=== PATIENT | male | born 1955 | race Caucasian/White ===

== ENCOUNTER 2016-08-12 09:13 | Emergency (ER) | payer OTHER, BC ==
[~2016-08-12] VITALS: Ht 177.8 cm; Wt 124.0 kg
[~2016-08-12 09:13] MED LIST: ACETAMINOPHN-T1 EACH PO; ACTOS30 MG PO; ADULT LOW DOSE81 M1 PO; ALLOPURINOL300 MG; ALLOPURINOL300 MG PO; ANAPROX DS550 M1 PO; B COMPLETE1 EACH PO; BENICAR HCT 401 EAC1; BENICAR HCT 401 EAC1 PO; CELEBREX200 MG PO; COLCRYS 0.6 MG; COLCRYS0.6 MG PO; FERROUS SULFAT325 MG PO; FISH OIL CONC1 EACH PO; FLEXERIL10 MG PO; LIDODERM 5% P1 PATCH TD; METFORMIN HCL1000 MG PO; METFORMIN HCL500 MG; NASONEX17 GM BOTH NARES; NEURONTIN; OXAYDO5 MG PO; OXAYDO7.5 MG PO; PERCOCET 5/31 TABLET PO; TRAMADOL HCL50 MG PO; VITAMIN B12-FO1 EACH PO
[2016-08-12] MEDS ORDERED: PROAIR HFA8.5 GM IH (11:15)
[2016-08-12] MEDS ORDERED: SPIRIVA RESPIMAT4 G1 AEROSOL (11:16)
[2016-08-12] MEDS ORDERED: ZYRTEC10 M2 PO (11:17)
[2016-08-12] MEDS ORDERED: ULTRACET1 TABLET PO (13:05)
[2016-08-12] MEDS ORDERED: VALIUM5 MG PO (13:05)
[2016-08-12] MEDS ORDERED: MOTRIN800 MG PO (13:05)
[2016-08-12] MEDS ORDERED: PREDNISONE20 MG PO (13:18)
[2016-08-12] MEDS ORDERED: NORCO 7.5/321 TABLET PO (13:18)
[2016-08-12 13:25] VITALS: BP 129/81
== END 2016-08-12 14:04 | disposition home or self-care (01) ==
LOC: EME 09:13
DX: S09.90XA Unspecified injury of head, initial encounter (principal); S16.1XXA Strain of muscle, fascia and tendon at neck level, initial encounter; S46.811A Strain of other muscles, fascia and tendons at shoulder and upper arm level, right arm, initial encounter; S20.211A Contusion of right front wall of thorax, initial encounter; S29.011A Strain of muscle and tendon of front wall of thorax, initial encounter; W00.0XXA Fall on same level due to ice and snow, initial encounter; R05 Cough; G89.29 Other chronic pain; Z79.82 Long term (current) use of aspirin
CPT/HCPCS: 71101; 99281; 99284

== ENCOUNTER → 2017-05-04 | Outpatient (CLI) | payer BC ==
[~2017-05-04] MED LIST changes: +MOTRIN800 MG PO; +NORCO 7.5/321 TABLET PO; +PREDNISONE20 MG PO; +PROAIR HFA8.5 GM IH; +SPIRIVA RESPIMAT4 G1 AEROSOL; +ULTRACET1 TABLET PO; +VALIUM5 MG PO; +ZYRTEC10 M2 PO
== END | disposition home or self-care (01) ==
LOC: NUC 10:22
DX: M47.896 Other spondylosis, lumbar region (principal); Z96.611 Presence of right artificial shoulder joint; Z87.81 Personal history of (healed) traumatic fracture; R93.7 Abnormal findings on diagnostic imaging of other parts of musculoskeletal system
CPT/HCPCS: 78306; A9503

== ENCOUNTER → 2017-05-07 | Outpatient (CLI) | payer BC | END | disposition home or self-care (01) | LOC: RAD 08:26 | DX: K57.90 Diverticulosis of intestine, part unspecified, without perforation or abscess without bleeding (principal); D35.02 Benign neoplasm of left adrenal gland; M16.0 Bilateral primary osteoarthritis of hip; M47.9 Spondylosis, unspecified | CPT/HCPCS: 74177 ==

== ENCOUNTER 2018-01-02 14:07 | Inpatient (IN) | payer BC ==
[~2018-01-02] VITALS: Ht 180.3 cm; Wt 131.0 kg
[~2018-01-02 14:07] MED LIST changes: -SPIRIVA RESPIMAT4 G1 AEROSOL; +SPIRIVA RESPIMAT4 G1 IH
[2018-01-02 14:47] LABS: HEMATOCRIT 42.8 % (38.0-50.0); HEMOGLOBIN 14.1 G/DL (12.5-16.6); MCH 30.2 PG (29.0-34.0); MCHC 32.9 G/DL (30.0-36.0); MCV 91.6 FL (86-99); PLATELET COUNT 336 K/uL (156-360); RBC DIS.WIDTH-CV 14.5 % (11.8-14.6); RBC DIS.WIDTH-SD 48.9 % (39-53); RED BLOOD COUNT 4.67 M/uL (4.00-5.50); WHITE BLOOD COUNT 14.6 K/uL (4.1-10.2)
[2018-01-02 14:58] LABS: CHLORIDE 98 mEq/L (99-109); POTASSIUM 4.1 mEq/L (3.7-5.4); SODIUM 136 mEq/L (136-147)
[2018-01-02 14:59] LABS: GLUCOSE 194 mg/dL (70-99)
[2018-01-02 15:03] LABS: CREATININE 1.9 mg/dL (0.6-1.3); GFR ESTIMATE (CALCULATED) 38 mL/min/ (58.99-99999)
[2018-01-02 15:04] LABS: UREA NITROGEN (BUN) 29 mg/dL (9-23)
[2018-01-02 15:09] LABS: TROP-I INTERPRETATION NEGATIVE; TROPONIN-I < 0.01 ng/mL (0.0-0.30)
[2018-01-02 15:36] LABS: ALBUMIN 4.1 g/dL (3.2-4.8)
[2018-01-02 15:38] LABS: TOTAL PROTEIN 7.8 g/dL (6.4-8.3)
[2018-01-02 15:40] LABS: TOTAL BILIRUBIN 0.5 mg/dL (0.0-1.0)
[2018-01-02 15:41] LABS: ALKALINE PHOSPHATASE 71 IU/L (3-129)
[2018-01-02 15:44] LABS: ALT (GPT) 11 IU/L (3-49); AST (GOT) 10 IU/L (2-34); DIRECT BILIRUBIN 0.3 mg/dL (0.0-0.3)
[2018-01-02 15:45] LABS: LIPASE 7 U/L (1.0-51.0)
[2018-01-02 18:17] LABS: TROP-I INTERPRETATION NEGATIVE; TROPONIN-I < 0.01 ng/mL (0.0-0.30)
[2018-01-02] MEDS ORDERED: FARXIGA5 MG PO (18:55)
[2018-01-02] MEDS ORDERED: OLMESARTAN-HCT1 EAC2 PO (18:55)
[2018-01-02] MEDS ORDERED: CELECOXIB200 MG PO (18:56)
[2018-01-02] MEDS ORDERED: PIOGLITAZONE HC30 MG PO (18:56)
[2018-01-02] MEDS ORDERED: DULERA 100 MCG/13 GM IH (18:57)
[2018-01-02] MEDS ORDERED: ULTRAM50 MG PO (18:58)
[2018-01-02] MEDS ORDERED: VITAMIN D2000 UNI1 PO (18:59)
[2018-01-02] MEDS ORDERED: CINNAMON500 MG PO (19:00)
[2018-01-02 20:42] LABS: PROSTATIC SPEC. AG. < 0.1 nG/mL (0-4.0)
[2018-01-02 21:15] VITALS: BP 147/67
[2018-01-03 00:49] VITALS: BP 117/59
[2018-01-03 03:48] VITALS: BP 134/59
[2018-01-03 06:14] LABS: HEMATOCRIT 37.2 % (38.0-50.0); MCH 29.2 PG (29.0-34.0); MCHC 31.7 G/DL (30.0-36.0); MCV 92.1 FL (86-99); PLATELET COUNT 308 K/uL (156-360); RBC DIS.WIDTH-CV 14.3 % (11.8-14.6); RBC DIS.WIDTH-SD 48.3 % (39-53); RED BLOOD COUNT 4.04 M/uL (4.00-5.50); WHITE BLOOD COUNT 9.8 K/uL (4.1-10.2)
[2018-01-03 06:15] LABS: HEMOGLOBIN 11.8 G/DL (12.5-16.6)
[2018-01-03 06:19] LABS: CHLORIDE 102 MEQ/L (99-109); CREATININE 1.5 MG/DL (0.6-1.3); GFR ESTIMATE (CALCULATED) 51 mL/min/ (58.99-99999); GLUCOSE 140 mg/dL (70-99); POTASSIUM 4.1 MEQ/L (3.7-5.4); SODIUM 137 MEQ/L (136-147); UREA NITROGEN (BUN) 32 mg/dL (9-23)
[2018-01-03 06:51] LABS: TROP-I INTERPRETATION NEGATIVE; TROPONIN-I < 0.01 ng/mL (0.0-0.30)
[2018-01-03 08:10] VITALS: BP 130/60
[2018-01-03 11:00] VITALS: BP 130/60
[2018-01-03 13:30] VITALS: BP 107/51
[2018-01-03 20:20] VITALS: BP 123/60
[2018-01-04 00:19] VITALS: BP 118/54
[2018-01-04 03:48] VITALS: BP 134/60
[2018-01-04 05:20] LABS: HEMATOCRIT 36.6 % (38.0-50.0); HEMOGLOBIN 11.7 G/DL (12.5-16.6); MCH 29.8 PG (29.0-34.0); MCV 93.1 FL (86-99); PLATELET COUNT 353 K/uL (156-360); RBC DIS.WIDTH-CV 14.1 % (11.8-14.6); RBC DIS.WIDTH-SD 48.9 % (39-53); RED BLOOD COUNT 3.93 M/uL (4.00-5.50); WHITE BLOOD COUNT 8.2 K/uL (4.1-10.2)
[2018-01-04 05:24] LABS: INTER. NORMALIZED RATIO 1.4
[2018-01-04 05:48] LABS: CHLORIDE 106 MEQ/L (99-109); CREATININE 1.1 MG/DL (0.6-1.3); GFR ESTIMATE (CALCULATED) > 59 mL/min/ (58.99-99999); GLUCOSE 119 mg/dL (70-99); MAGNESIUM 2.1 mg/dl (1.3-2.7); POTASSIUM 3.8 MEQ/L (3.7-5.4); SODIUM 140 MEQ/L (136-147); UREA NITROGEN (BUN) 19 mg/dL (9-23)
[2018-01-04 08:00] VITALS: BP 131/60
[2018-01-04 11:53] VITALS: BP 122/58
[2018-01-04 14:08] VITALS: BP 133/62
[2018-01-04 19:52] VITALS: BP 137/62
[2018-01-05] VITALS (7 sets, daily range): BP systolic 126–145; BP diastolic 55–78
[2018-01-05 05:27] LABS: BASOPHIL (%) 0.3 % (0-1); EOSINOPHIL (%) 2.6 % (0-5); EOSINOPHIL COUNT 0.3 K/uL (0-0.3); HEMATOCRIT 36.6 % (38.0-50.0); HEMOGLOBIN 11.7 G/DL (12.5-16.6); IMMATURE GRANULOCYTE (%) 0.6 % (0.0-0.7); LYMPHOCYTE COUNT 0.9 K/uL (1.0-2.8); MCH 29.5 PG (29.0-34.0); MCV 92.4 FL (86-99); MONOCYTE (%) 10.3 % (3-12); NEUTROPHIL (%) 77.2 % (45-76); NEUTROPHIL COUNT 7.8 K/uL (1.8-6.4); PLATELET COUNT 314 K/uL (156-360); RBC DIS.WIDTH-CV 14.2 % (11.8-14.6); RBC DIS.WIDTH-SD 48.5 % (39-53); RED BLOOD COUNT 3.96 M/uL (4.00-5.50); WHITE BLOOD COUNT 10.1 K/uL (4.1-10.2)
[2018-01-05 05:46] LABS: CHLORIDE 108 MEQ/L (99-109); CREATININE 1.1 MG/DL (0.6-1.3); GFR ESTIMATE (CALCULATED) > 59 mL/min/ (58.99-99999); GLUCOSE 155 mg/dL (70-99); POTASSIUM 4.6 MEQ/L (3.7-5.4); SODIUM 139 MEQ/L (136-147); UREA NITROGEN (BUN) 18 mg/dL (9-23)
[2018-01-06 04:30] VITALS: BP 126/58
[2018-01-06 07:57] VITALS: BP 147/72
[2018-01-06] MEDS ORDERED: ZYVOX600 MG PO (12:59)
[2018-01-06] MEDS ORDERED: LIPITOR40 MG PO (14:23)
== END 2018-01-06 15:21 | disposition home or self-care (01) | DRG 603 ==
LOC: EME 14:07 → EDOF 19:51 → 4EAST 19:51 → ENRESERV 19:57 → 4EAST 21:16
PROVIDERS: Emergency Medicine Emergency Medical Services; Hospitalist; Internal Medicine; Radiology Diagnostic Radiology; Surgery
PROC: 0H97XZZ Drainage of Abdomen Skin, External Approach (ICD-10-PCS; principal; 2018-01-04)
DX: L02.211 Cutaneous abscess of abdominal wall (principal); B95.62 Methicillin resistant Staphylococcus aureus infection as the cause of diseases classified elsewhere; N17.9 Acute kidney failure, unspecified; R07.89 Other chest pain; E11.9 Type 2 diabetes mellitus without complications; I10 Essential (primary) hypertension; J44.9 Chronic obstructive pulmonary disease, unspecified; K21.9 Gastro-esophageal reflux disease without esophagitis; E78.5 Hyperlipidemia, unspecified; K58.9 Irritable bowel syndrome, unspecified; M10.9 Gout, unspecified; N50.811 Right testicular pain; R32 Unspecified urinary incontinence; E66.01 Morbid (severe) obesity due to excess calories; Z68.38 Body mass index [BMI] 38.0-38.9, adult; Z79.4 Long term (current) use of insulin; Z79.82 Long term (current) use of aspirin; Z85.46 Personal history of malignant neoplasm of prostate; Z90.79 Acquired absence of other genital organ(s); Z96.611 Presence of right artificial shoulder joint; Z87.19 Personal history of other diseases of the digestive system; Z82.49 Family history of ischemic heart disease and other diseases of the circulatory system
CPT/HCPCS: 71046; 72197; 74176; 75989; 80048; 80076; 80202; 82948; 83690; 83735; 83880; 84153; 84154 GA; 84484; 85025; 85027; 85610; 87040; 87070; 87075; 87077; 87147; 87186; 87205; 89051; 93005; 93306; 94640; 94640 76; 99202; 99281; 99285; J0696; J0744; J1644; J2405; J3010; J3370; J7030; J7040; S0030